=== PATIENT | female | born 1950 | race Caucasian/White ===

== ENCOUNTER 2020-04-15 17:01 | Emergency (ER) | payer MEDICARE, OTHER ==
[~2020-04-15] VITALS: Ht 170.2 cm; Wt 70.3 kg
[2020-04-15 17:02] VITALS: BP 151/79
[2020-04-15] MEDS ORDERED: MINIVELLE1 EAC1 TOP (17:07)
[2020-04-15] MEDS ORDERED: LASIX 40 MG TAB40 MG PO (17:07)
[2020-04-15] MEDS ORDERED: TRAMADOL 50 MG50 MG PO (17:07)
[2020-04-15] MEDS ORDERED: POTASSIUM CHLO10 ME1 PO (17:08)
[2020-04-15] MEDS ORDERED: NORCO 5-325 TA1 EAC2 PO (18:15)
== END 2020-04-15 18:19 | disposition home or self-care (01) ==
LOC: M.ERS 17:01
DX: S90.32XA Contusion of left foot, initial encounter (principal); Z79.899 Other long term (current) drug therapy; Z90.49 Acquired absence of other specified parts of digestive tract; Z90.710 Acquired absence of both cervix and uterus; W22.8XXA Striking against or struck by other objects, initial encounter; Y93.89 Activity, other specified; Y92.89 Other specified places as the place of occurrence of the external cause; Y99.8 Other external cause status